=== PATIENT | female | born 1980 | race Caucasian/White ===

== ENCOUNTER → 2016-11-26 | Outpatient (CLI) | payer BC ==
[~2016-11-26] MED LIST: NO HOME MEDICATIONS; NORCO 325 MG-51 TAB PO
== END ==
LOC: MC.RAD 14:00
DX: D24.1 Benign neoplasm of right breast (principal); Z80.3 Family history of malignant neoplasm of breast

== ENCOUNTER → 2017-06-25 | Outpatient (CLI) | payer BC | LOC: MC.RAD 07:49 | DX: Z12.31 Encounter for screening mammogram for malignant neoplasm of breast (principal) ==